=== PATIENT | male | born 1950 | race Caucasian/White ===

== ENCOUNTER → 2018-01-14 09:06 | Outpatient (CLI) | payer MEDICARE ==
[2016-03-20 08:09] VITALS: BMI 38.8
[~2018-01-14 09:06] MED LIST: COUMADIN10 MG PO; LEVOTHYROXINE125 MCG PO; LISINOPRIL-HCTZ1 T13 PO; LOPRESSOR25 MG PO; OMEPRAZOLE20 M1 PO; SINGULAIR10 MG PO
== END | disposition home or self-care (01) ==
LOC: D.RT 09:00
DX: J44.9 Chronic obstructive pulmonary disease, unspecified (principal)

== ENCOUNTER → 2018-03-01 09:58 | Outpatient (CLI) | payer MEDICARE ==
[2016-03-20 08:09] VITALS: BMI 38.8
[2018-03-01 11:28] LABS: CREATININE - SERUM 1.2 mg/dL (0.6-1.3)
== END | disposition home or self-care (01) ==
LOC: D.CT 09:58
PROVIDERS: Internal Medicine Pulmonary Disease
DX: R91.8 Other nonspecific abnormal finding of lung field (principal)

== ENCOUNTER 2018-09-02 05:38 | Emergency (ER) | payer MEDICARE ==
[~2018-09-02] VITALS: Ht 177.8 cm; Wt 111.4 kg
[2018-09-02 05:43] VITALS: Ht 177.8 cm; Wt 111.4 kg
[2018-09-02 06:37] LABS: BASOPHILS 0.3 % (0-2); EOSINOPHILS 2.1 % (0-7); HEMATOCRIT 45.6 % (42.0-54.0); HEMOGLOBIN 15.8 g/dL (13.5-17.5); IMMATURE GRANULOCYTES 0.2 % (0-5); LYMPHOCYTES 30.2 % (15-50); MCH 32.2 pg (26.0-34.0); MCHC 34.6 g/dL (31.0-37.0); MCV 93.1 fL (80.0-100.0); MEAN PLATELET VOLUME 9.9 fL (7.4-10.4); MONOCYTES 10.8 % (2-11); NEUTROPHILS 56.4 % (40-80); PLATELET COUNT 204 10x3/uL (130-400); RDW 13.2 % (11.5-14.5); WBC 9.6 10x3/uL (4.8-10.8)
[2018-09-02 06:41] LABS: ALBUMIN 3.4 g/dL (3.4-5.0); ALKALINE PHOSPHATASE 91 U/L (46-116); ALT (SGPT) 24 U/L (10-68); BILIRUBIN - TOTAL 0.24 mg/dL (0.2-1.3); CALC OSMOLALITY 283 mosm/kg (275-300); CALCIUM 8.9 mg/dL (8.5-10.1); CARBON DIOXIDE 26.1 mmol/L (21.0-32.0); CHLORIDE - SERUM 105 mmol/L (98-107); CREATININE - SERUM 1.2 mg/dL (0.6-1.3); GLUCOSE 110 mg/dL (74-106); POTASSIUM - SERUM 3.8 mmol/L (3.5-5.1); PROTEIN - SERUM 7.3 g/dL (6.4-8.2); SODIUM 140 mmol/L (136-145); UREA NITROGEN 24 mg/dL (7-18); eGFR NON AFRICAN AMERICAN 64 mL/min (90-120)
[2018-09-02 06:45] LABS: APPEARANCE HAZY (CLEAR); COLOR DK YELLOW (YELLOW); SPECIFIC GRAVITY 1.025 (1.005-1.020)
[2018-09-02 06:46] LABS: BACTERIA FEW /hpf (NONE SEEN); BILIRUBIN NEGATIVE (NEGATIVE); EPITHELIAL CELLS OCC /hpf (0-5); GLUCOSE NEGATIVE (NEGATIVE); HYALINE CAST 0-5 /lpf (NONE SEEN); KETONE NEGATIVE (NEGATIVE); MUCUS >1+ /lpf (NONE SEEN); NITRITE NEGATIVE (NEGATIVE); PROTEIN NEGATIVE (NEGATIVE); RED CELLS - URINE 0-5 /hpf (0-5); UROBILINOGEN NORMAL (NORMAL); WAXY CAST 0-5 /lpf (NONE SEEN); WHITE CELLS - URINE 0-5 /hpf (0-5)
[2018-09-02 06:51] LABS: AMYLASE - SERUM 49 U/L (25-115); CKMB 1.1 U/L (0.0-3.6); CREATINE KINASE 55 UL (21-232); LIPASE 205 U/L (73-393); TROPONIN-I < 0.017 ng/mL (0.000-0.060)
[2018-09-02 07:21] LABS: INR 1.65 (0.85-1.17)
[2018-09-02 07:22] LABS: APTT 31.1 SECONDS (22.8-39.4)
[2018-09-02 07:23] LABS: D-DIMER-QUANTITATIVE 0.31 ug/mLFEU (0.20-0.54)
[2018-09-02 08:26] LABS: MAGNESIUM - SERUM 1.9 mg/dL (1.8-2.4)
[2018-09-02] MEDS ORDERED: NORCO 7.5/325 T1 TA1 PO (09:13)
[2018-09-02] MEDS ORDERED: ZOFRAN ODT4 MG/UDTAB PO (09:13)
[2018-09-02 09:33] VITALS: BP 153/79
== END 2018-09-02 09:35 | disposition home or self-care (01) ==
LOC: D.ER 05:38
PROVIDERS: Emergency Medicine; Family Medicine
DX: R10.13 Epigastric pain (principal); I10 Essential (primary) hypertension; N42.9 Disorder of prostate, unspecified; Z85.828 Personal history of other malignant neoplasm of skin; R00.1 Bradycardia, unspecified; I44.0 Atrioventricular block, first degree

== ENCOUNTER → 2019-05-29 08:52 | Outpatient (CLI) | payer MEDICARE ==
[2018-09-02 05:43] VITALS: BMI 35.2
[~2019-05-29 08:52] MED LIST changes: +NORCO 7.5/325 T1 TA1 PO; +ZOFRAN ODT4 MG/UDTAB PO
== END | disposition home or self-care (01) ==
LOC: D.US 08:52
PROVIDERS: ATTEND Internal Medicine Gastroenterology
DX: R14.0 Abdominal distension (gaseous) (principal); Z72.89 Other problems related to lifestyle

== ENCOUNTER → 2019-08-13 08:43 | Outpatient (CLI) | payer MEDICARE ==
[2018-09-02 05:43] VITALS: BMI 35.2
== END | disposition home or self-care (01) ==
LOC: D.RT 08:43
PROVIDERS: ATTEND Internal Medicine Pulmonary Disease
DX: J44.9 Chronic obstructive pulmonary disease, unspecified (principal)

== ENCOUNTER 2020-02-01 04:16 | Inpatient (IN) | payer MEDICARE ==
[~2020-02-01] VITALS: Ht 177.8 cm; Wt 113.4 kg
[2020-02-01 05:01] LABS: BASOPHILS 0.1 % (0-2); EOSINOPHILS 0 % (0-7); HEMATOCRIT 46.6 % (42.0-54.0); HEMOGLOBIN 15.2 g/dL (13.5-17.5); IMMATURE GRANULOCYTES 0.2 % (0-5); LYMPHOCYTES 15.3 % (15-50); MCH 31.5 pg (26.0-34.0); MCHC 32.6 g/dL (31.0-37.0); MCV 96.5 fL (80.0-100.0); MEAN PLATELET VOLUME 9.1 fL (7.4-10.4); MONOCYTES 6.4 % (2-11); PLATELET COUNT 265 10x3/uL (130-400); RBC 4.83 10x6/uL (4.20-6.10); RDW 13.1 % (11.5-14.5); WBC 13.2 10x3/uL (4.8-10.8)
[2020-02-01 05:18] LABS: CALC OSMOLALITY 286 mosm/kg (275-300); CALCIUM 9.4 mg/dL (8.5-10.1); CARBON DIOXIDE 27.2 mmol/L (21.0-32.0); CHLORIDE - SERUM 106 mmol/L (98-107); CREATININE - SERUM 1.1 mg/dL (0.6-1.3); GLUCOSE 138 mg/dL (74-106); SODIUM 142 mmol/L (136-145); UREA NITROGEN 19 mg/dL (7-18); eGFR NON AFRICAN AMERICAN 71 mL/min (90-120)
[2020-02-01 05:31] LABS: ALBUMIN 3.5 g/dL (3.4-5.0); ALKALINE PHOSPHATASE 102 U/L (30-120); ALT (SGPT) 19 U/L (10-68); BILIRUBIN - TOTAL 0.43 mg/dL (0.2-1.3); LIPASE 91 U/L (73-393); PRO BNP 187 pg/mL (0-125); PROTEIN - SERUM 7.3 g/dL (6.4-8.2)
[2020-02-01 05:35] LABS: TROPONIN-I < 0.017 ng/mL (0.000-0.060)
--- NOTE | 2020-02-01 06:06 | NUR ---
PT TAKEN TO CT AT THIS TIME
[2020-02-01 07:00] VITALS: BP 160/76
--- NOTE | 2020-02-01 08:00 | NUR ---
ALERT AND ORIENTED X4. ABDOMINAL TENDERNESS NOTED TO EPIGASTRIC AREA WITH BOWEL SOUNDS NOTED X4 ANTERIOR. IV NOTED TO RT. F/A WITH IVF INFUSING AT PRESCRIBED RATE. HRRR AND LUNGS CTA. DENIES ANY PAIN OR DISCOMFORT AT THIS TIME. ENCOURAGED TO USE CALL LIGHT FOR ASSSIT.
[2020-02-01 08:01] VITALS: BP 160/76; BMI 35.9
[2020-02-01 11:30] VITALS: BP 143/79
[2020-02-01 16:30] VITALS: BP 154/76
--- NOTE | 2020-02-01 19:00 | NUR ---
BEDSIDE REPORT RECEIVED AND CARE OF PT ASSUMED. PT SITTING UP ON SIDE OF BED AT THIS TIME. IV TO RIGHT FA PATENT WITH NS INFUSING AT 125 ML/HR, AND PROTONIX INFUSING AT 10 ML/HR. COLLECTED URINE SAMPLE FOR ORDERED STUDIES AND DELIVERED TO LAB.
[2020-02-01 19:34] VITALS: BP 138/72
[2020-02-01 20:02] LABS: BILIRUBIN NEGATIVE (NEGATIVE); GLUCOSE NEGATIVE (NEGATIVE); KETONE NEGATIVE (NEGATIVE); NITRITE NEGATIVE (NEGATIVE); SPECIFIC GRAVITY 1.015 (1.005-1.020); UROBILINOGEN NORMAL (NORMAL)
--- NOTE | 2020-02-01 20:08 | NUR ---
HS MEDICATIONS GIVEN. WILL CONTINUE TO MONITOR FOR NEEDS.
[2020-02-01 20:10] LABS: UDS - AMPHET NEGATIVE QUAL (NEGATIVE); UDS - BARB NEGATIVE QUAL (NEGATIVE); UDS - BENZO NEGATIVE QUAL (NEGATIVE); UDS - COCAINE NEGATIVE QUAL (NEGATIVE); UDS - OPIATE POSITIVE QUAL (NEGATIVE); UDS - PCP NEGATIVE QUAL (NEGATIVE); UDS - THC POSITIVE QUAL (NEGATIVE)
--- NOTE | 2020-02-01 20:20 | NUR ---
GAVE X2 VANILLA ICE CREAM FOR HS SNACK, PER REQUEST.
[2020-02-02] VITALS (9 sets, daily range): BP systolic 105–150; BP diastolic 47–89; Ht 177.8 cm; Wt 113.4 kg
[2020-02-02 04:25] LABS: BASOPHILS 0.1 % (0-2); EOSINOPHILS 0.4 % (0-7); HEMATOCRIT 41.3 % (42.0-54.0); HEMOGLOBIN 13.6 g/dL (13.5-17.5); IMMATURE GRANULOCYTES 0.2 % (0-5); MCH 31.8 pg (26.0-34.0); MCHC 32.9 g/dL (31.0-37.0); MCV 96.5 fL (80.0-100.0); MEAN PLATELET VOLUME 9.2 fL (7.4-10.4); MONOCYTES 15.4 % (2-11); NEUTROPHILS 61.9 % (40-80); PLATELET COUNT 220 10x3/uL (130-400); RBC 4.28 10x6/uL (4.20-6.10); RDW 13.1 % (11.5-14.5); WBC 14.2 10x3/uL (4.8-10.8)
[2020-02-02 04:43] LABS: CALC OSMOLALITY 271 mosm/kg (275-300); CALCIUM 8.2 mg/dL (8.5-10.1); CARBON DIOXIDE 26.6 mmol/L (21.0-32.0); CHLORIDE - SERUM 102 mmol/L (98-107); CREATININE - SERUM 0.9 mg/dL (0.6-1.3); GLUCOSE 100 mg/dL (74-106); POTASSIUM - SERUM 3.5 mmol/L (3.5-5.1); SODIUM 136 mmol/L (136-145); eGFR NON AFRICAN AMERICAN 89 mL/min (90-120)
[2020-02-02 04:52] LABS: UREA NITROGEN 13 mg/dL (7-18)
[2020-02-02] MEDS ORDERED: PROTONIX40 MG PO (11:34)
[2020-02-02] MEDS ORDERED: SINGULAIR10 MG PO (11:34)
[2020-02-02] MEDS ORDERED: CARAFATE1 G PO (11:34)
[2020-02-02] MEDS ORDERED: HCTZ25 MG PO (11:34)
[2020-02-02] MEDS ORDERED: Nicoderm [PBKC] TRANSDERM (11:34)
--- NOTE | 2020-02-02 12:25 | NUR ---
UPON ADMIT PATIENT HAS NOT HAD A FLU SHOT. WHEN QUESTIONED AT DISCHARGE, HE REFUSED IT.
--- NOTE | 2020-02-02 12:29 | NUR ---
PATIENT CAN BE D/C PER DR MCDONOUGH
--- NOTE | 2020-02-02 14:10 | NUR ---
IV THERAPY REMOVED FROM RIGHT FOREARM TIP INTACT. DISCHARGE INSTRUCTIONS GIVEN. PATIENT VERBALIZED UNDERSTANDING. PATIENT'S RIDE WILL BE HERE IN 30 MIN. PATIENT TAKING A SHOWER. WILL NOTIFY ME WHEN HE IS READY TO BE WHEELED DOWNSTAIRS.
--- NOTE | 2020-02-03 16:41 | MORECARE ---
CASE MANAGEMENT DISCHARGE SUMMARY PATIENT: TYRESE ESCALANTE UNIT: [id number] ADM DATE: 02/01/20 AGE: 69 : 54 SEX: M ROOM/BED: D.2203 AUTHOR: ARLEEN SOUTH PHYSICIAN: REFERRING PHYSICIAN: ERNESTO HART MD DATE OF SERVICE: 02/03/20 Discharge Plan Patient Name: TYERSE ESCALANTE Facility: [facility]:[place] : 1950 Planned Disposition: Home Anticipated Discharge Date: 02/02/20 Discharge Date: 02/02/2020 Expected LOS: 1 Initial Reviewer: [email or web address] Initial Review Date: 02/02/2020 Generated: 02/03/20 5:40 pm Comments DCP- Discharge Planning Updated by [email or web address]: Tyrese Verma on 02/03/20 3:[address] Patient Name: TYRESE ESCALANTE Admission Status: ER Accout number: [id number] Admission Date: 02-01-2020 : 1950 Admission Diagnosis: Attending: ERNESTO HART Current LOS: 1 Anticipated DC Date: 02-02-2020 Planned Disposition: Home Primary Insurance: [employer] ADV Discharge Planning Comments: CM MET WITH PT IN ROOM TO DISCUSS DISCHARGE NEEDS AND PLANNING. CM DISCUSSED AVAILABILITY OF HOME HEALTH, REHAB SERVICES AND MEDICAL EQUIPMENT. PT DENIES DISCHARGE NEEDS. FAMILY TO TRANSPORT HOME AT DISCHARGE. IMPORTANT MESSAGE FROM MEDICARE PROVIDED AND EXPLAINED. Group Director: YOON ALFARO RN Coverage Notice Reviewer: [id number] - Yoon Alfaro Notice Issued Date-Time: 02/02/2020 12:00 Notice Type: IM Discharge Notice Notice Delivered To: Patient Relationship to Patient: Head Banquet Waiter/Waitress Name: Delivery Method: HAND - Hand Delivered Aye Days: Prior Verbal Notification: Recipient Understood Notice: Yes Recipient Signature: Yes Med Rec Note Co-signed by Attending: Coverage Notice Comment: Patient Name: TRYESE ESCALANTE Page [phone] at 1641 All edits/amendments must be made on the electronic document DICTATION DATE: 02/03/20 1640 HIDE SPLITTER: LENNIE 02/03/20 1640 RPT#: [id number] DC DATE:02/02/20 STATUS: DIS IN [facility] [address] [place] [address] END OF REPORT
== END 2020-02-02 14:29 | disposition home or self-care (01) | DRG 392 ==
LOC: D.ER 04:16 → D.MS 06:51
PROVIDERS: Family Medicine; Internal Medicine Gastroenterology; ADMIT Internal Medicine Nephrology; ATTEND Internal Medicine Nephrology
PROC: 0DB68ZX Excision of Stomach, Via Natural or Artificial Opening Endoscopic, Diagnostic (ICD-10-PCS; principal; 2020-02-02 09:34)
DX: K21.0 Gastro-esophageal reflux disease with esophagitis (principal); N17.9 Acute kidney failure, unspecified; F17.213 Nicotine dependence, cigarettes, with withdrawal; K29.00 Acute gastritis without bleeding; I10 Essential (primary) hypertension; J44.9 Chronic obstructive pulmonary disease, unspecified

== ENCOUNTER 2020-03-20 06:57 | Emergency (ER) | payer MEDICARE ==
[~2020-03-20] VITALS: Ht 177.8 cm; Wt 106.8 kg
[~2020-03-20 06:57] MED LIST changes: +CARAFATE1 G PO; +HCTZ25 MG PO; +Nicoderm [PBKC] TRANSDERM; +PROTONIX40 MG PO
[2020-03-20 07:01] VITALS: Ht 177.8 cm; Wt 106.8 kg
[2020-03-20 07:27] LABS: BASOPHILS 0.2 % (0-2); EOSINOPHILS 0.3 % (0-7); HEMATOCRIT 46.2 % (42.0-54.0); HEMOGLOBIN 15.6 g/dL (13.5-17.5); IMMATURE GRANULOCYTES 0.4 % (0-5); LYMPHOCYTES 20.4 % (15-50); MCH 31.4 pg (26.0-34.0); MCHC 33.8 g/dL (31.0-37.0); MEAN PLATELET VOLUME 8.8 fL (7.4-10.4); MONOCYTES 6.3 % (2-11); NEUTROPHILS 72.4 % (40-80); PLATELET COUNT 217 10x3/uL (130-400); RBC 4.97 10x6/uL (4.20-6.10); RDW 12.5 % (11.5-14.5); WBC 10.7 10x3/uL (4.8-10.8)
[2020-03-20 07:55] LABS: CALC OSMOLALITY 274 mosm/kg (275-300); CALCIUM 9.6 mg/dL (8.5-10.1); CARBON DIOXIDE 26.6 mmol/L (21.0-32.0); CHLORIDE - SERUM 103 mmol/L (98-107); CREATININE - SERUM 1.1 mg/dL (0.6-1.3); GLUCOSE 123 mg/dL (74-106); POTASSIUM - SERUM 3.6 mmol/L (3.5-5.1); SODIUM 136 mmol/L (136-145); UREA NITROGEN 17 mg/dL (7-18); eGFR NON AFRICAN AMERICAN 71 mL/min (90-120)
[2020-03-20 08:05] LABS: ALBUMIN 3.6 g/dL (3.4-5.0); ALKALINE PHOSPHATASE 117 U/L (30-120); ALT (SGPT) 21 U/L (10-68); AMYLASE - SERUM 43 U/L (25-115); BILIRUBIN - TOTAL 0.69 mg/dL (0.2-1.3); LIPASE 93 U/L (73-393); PROTEIN - SERUM 7.4 g/dL (6.4-8.2); TROPONIN-I < 0.017 ng/mL (0.000-0.060)
[2020-03-20] MEDS ORDERED: PROTONIX40 MG PO (08:51)
[2020-03-20] MEDS ORDERED: CARAFATE1 G PO (08:51)
[2020-03-20 09:25] VITALS: BP 175/89
== END 2020-03-20 09:26 | disposition home or self-care (01) ==
LOC: D.ER 06:57
PROVIDERS: Family Medicine
DX: K29.70 Gastritis, unspecified, without bleeding (principal); I10 Essential (primary) hypertension; J44.9 Chronic obstructive pulmonary disease, unspecified; R10.13 Epigastric pain; R11.10 Vomiting, unspecified

== ENCOUNTER → 2020-06-08 08:25 | Outpatient (CLI) | payer MEDICARE ==
[2020-03-20 07:01] VITALS: BMI 33.7
[2020-06-08 09:01] LABS: ALBUMIN 3.4 g/dL (3.4-5.0); BILIRUBIN - DIRECT 0.13 mg/dL (0.00-0.30); BILIRUBIN - INDIRECT 0.24 mg/dL (0.00-1.00); BILIRUBIN - TOTAL 0.37 mg/dL (0.2-1.3); PROTEIN - SERUM 7.5 g/dL (6.4-8.2)
== END | disposition home or self-care (01) ==
LOC: D.LAB 08:00 → D.US 09:30
PROVIDERS: ATTEND Internal Medicine Gastroenterology
DX: K76.0 Fatty (change of) liver, not elsewhere classified (principal)

== ENCOUNTER → 2020-08-13 08:46 | Outpatient (CLI) | payer MEDICARE ==
[2020-03-20 07:01] VITALS: BMI 33.7
== END | disposition home or self-care (01) ==
LOC: D.LAB 08:46
PROVIDERS: ATTEND Internal Medicine Pulmonary Disease
DX: Z12.31 Encounter for screening mammogram for malignant neoplasm of breast (principal)

== ENCOUNTER → 2020-08-16 09:55 | Outpatient (CLI) | payer MEDICARE ==
[2020-03-20 07:01] VITALS: BMI 33.7
== END | disposition home or self-care (01) ==
LOC: D.RT 09:55
PROVIDERS: ATTEND Internal Medicine Pulmonary Disease
DX: R91.8 Other nonspecific abnormal finding of lung field (principal); J44.9 Chronic obstructive pulmonary disease, unspecified